=== PATIENT | female | born 1965 | race Two or more races ===

== ENCOUNTER 2016-05-21 11:52 | Emergency (ER) | payer BC ==
[2016-05-21] MEDS ORDERED: ACETAMINOPHEN 500 MG TABLET ONE (13:08)
== END 2016-05-21 13:56 | disposition home or self-care (01) ==
LOC: ED 11:52
DX: R50.9 Fever, unspecified (principal); R05 Cough
CPT/HCPCS: 87804; 99283 ×2; A9270